=== PATIENT | male | born 1930 | race Caucasian/White ===

== ENCOUNTER → 2017-02-26 | Outpatient (CLI) | payer MEDICARE, OTHER ==
[~2017-02-26] MED LIST: ASPIR 8181 MG PO; CARDENE 20MG CA20 MG PO; CARDURA4 MG PO; CATAPRES 0.1MG0.1 MG PO; COZAAR100 MG PO; FOLIC ACID0.4 MG PO; MEN'S MULTI-VI1 EACH PO; MINOXIDIL2.5 MG PO; NEURONTIN 100100 MG PO; PRAVACHOL40 MG PO; PROTONIX 40 MG40 M1 PO; SYNTHROID50 MCG PO
== END ==
LOC: US 13:47
DX: I73.9 Peripheral vascular disease, unspecified (principal); R93.8 Abnormal findings on diagnostic imaging of other specified body structures
CPT/HCPCS: 93925